=== PATIENT | female | born 1955 | race Caucasian/White ===

== ENCOUNTER 2019-07-17 09:13 | Emergency (ER) | payer OTHER ==
[~2019-07-17] VITALS: Ht 147.3 cm; Wt 83.0 kg
[~2019-07-17 09:13] MED LIST: ADDERALL 10 MG10 MG PO; B COMPLEX1 EAC1 PO; CALCIUM 500 +1 EAC5 PO; CRESTOR10 MG PO; HYDROCODONE-AP1 EAC6 PO; MAGNESIUM CITR100 GM PO; MAXZIDE-25 MG1 EACH PO; NASACORT10.8 ML NS; POTASSIUM99 M2 PO; PRILOSEC20 MG PO; PROZAC10 MG PO; SINGULAIR 10 MG10 M1 PO; TRICOR145 MG PO; ZYRTEC10 M5 PO
[2019-07-17] MEDS ORDERED: VITAMIN B122500 MC1 PO (09:21)
[2019-07-17] MEDS ORDERED: GLUCOPHAGE1000 MG PO (09:22)
[2019-07-17] MEDS ORDERED: VITAMINC500 PO (09:22)
[2019-07-17] MEDS ORDERED: COZAAR 25 MG TA25 M1 PO (09:22)
[2019-07-17] MEDS ORDERED: LATUDA20 MG PO (09:22)
[2019-07-17] MEDS ORDERED: HYDROCODON-ACE1 EAC7 PO (10:43)
[2019-07-17 10:54] VITALS: BP 149/55
== END 2019-07-17 10:56 | disposition home or self-care (01) ==
LOC: M.ERS 09:13
DX: S22.080A Wedge compression fracture of T11-T12 vertebra, initial encounter for closed fracture (principal); I10 Essential (primary) hypertension; E11.9 Type 2 diabetes mellitus without complications; E78.5 Hyperlipidemia, unspecified; K21.9 Gastro-esophageal reflux disease without esophagitis; Z98.51 Tubal ligation status; Z88.8 Allergy status to other drugs, medicaments and biological substances; V89.2XXA Person injured in unspecified motor-vehicle accident, traffic, initial encounter; Y93.89 Activity, other specified; Y92.89 Other specified places as the place of occurrence of the external cause; Y99.8 Other external cause status

== ENCOUNTER → 2019-07-31 | Outpatient (CLI) | payer OTHER, MEDICARE ==
[~2019-07-31] VITALS: Ht 149.9 cm; Wt 83.1 kg
[~2019-07-31] MED LIST changes: +COZAAR 25 MG TA25 M1 PO; +GLUCOPHAGE XR750 MG PO; +HYDROCODON-ACE1 EAC7 PO; +LATUDA60 MG PO; -MAGNESIUM CITR100 GM PO; +MAGNESIUM CITR125 MG PO; +VITAMIN B122500 MC1 PO; +VITAMINC500 PO
[2019-07-31 08:31] VITALS: BP 157/65
== END ==
LOC: M.MRI 07-19 09:10 → M.INT 07-25 14:30 → M.MRI 07-25 14:30
DX: S22.080A Wedge compression fracture of T11-T12 vertebra, initial encounter for closed fracture (principal); M51.24 Other intervertebral disc displacement, thoracic region; M48.04 Spinal stenosis, thoracic region; X58.XXXA Exposure to other specified factors, initial encounter; Y93.89 Activity, other specified; Y92.89 Other specified places as the place of occurrence of the external cause; Y99.8 Other external cause status

== ENCOUNTER → 2019-08-01 | Outpatient (CLI) | payer OTHER, MEDICARE ==
[~2019-08-01] VITALS: Ht 147.3 cm; Wt 83.0 kg
[2019-08-01 09:01] VITALS: BP 132/58
[2019-08-01 09:02] LABS: HEMATOCRIT 32.1 % (37.0-47.0); HEMOGLOBIN 10.3 gm/dL (12.0-15.0); MCH 22.1 pg (26.0-34.0); MCHC 32.2 g/dL (28.0-37.0); MCV 68.6 fL (80.0-100.0); MPV 7.8 fl. (7.2-11.1); RBC 4.68 mil/uL (4.20-5.00); RDW-CV 19.2 % (10.5-14.5); WBC 6.8 thou/uL (4.0-11.0)
[2019-08-01 09:15] LABS: CREATININE 1.4 mg/dL (0.6-1.3); POTASSIUM 3.9 mmol/L (3.5-5.1)
[2019-08-01 09:18] LABS: APTT 24.7 Seconds (25.0-31.3); INR 1.1; PROTIME 11.2 Seconds (9.20-11.50)
[2019-08-01 09:20] LABS: ALBUMIN 3.4 g/dL (3.4-5.0); TOTAL BILIRUBIN 0.2 mg/dL (<0.1-1.0); TOTAL PROTEIN 7.4 g/dL (6.4-8.2)
[2019-08-01 10:53] VITALS: BP 127/53
[2019-08-01 11:06] VITALS: BP 129/52
[2019-08-01 11:59] VITALS: BP 102/59
[2019-08-01 12:01] VITALS: BP 102/59
== END | disposition home or self-care (01) ==
LOC: M.INT 08:10
PROVIDERS: Radiology Diagnostic Radiology
DX: M54.6 Pain in thoracic spine (principal); S22.080A Wedge compression fracture of T11-T12 vertebra, initial encounter for closed fracture; I10 Essential (primary) hypertension; E78.5 Hyperlipidemia, unspecified; E11.9 Type 2 diabetes mellitus without complications; K21.9 Gastro-esophageal reflux disease without esophagitis; Z79.899 Other long term (current) drug therapy; Z98.890 Other specified postprocedural states; Z98.51 Tubal ligation status; Z88.8 Allergy status to other drugs, medicaments and biological substances; V49.9XXA Car occupant (driver) (passenger) injured in unspecified traffic accident, initial encounter; Y93.89 Activity, other specified; Y92.89 Other specified places as the place of occurrence of the external cause; Y99.8 Other external cause status